=== PATIENT | female | born 2000 | race Caucasian/White ===

== ENCOUNTER 2021-01-21 13:41 | Emergency (ER) | payer SELFPAY ==
[2021-01-21 14:37] LABS: ACETAMINOPHEN < 2 ug/mL (<2)
--- NOTE | 2021-01-21 15:55 | EDM.PDOCBH ---
ED HPI GENERAL MEDICAL PROBLEM - General Stated Complaint: LACERATION Time Seen by Provider: 01/21/21 13:50 Source of Information: Reports: Patient, Family History Limitations: Reports: No Limitations - History of Present Illness INITIAL COMMENTS - FREE TEXT/NARRATIVE: c/o cutting arm pt went in bathroom and cut herself on her L forearm with a hunting knife, her boyfriend was in the other room and brought her to the hospital pt from [place], "left home" 9m ago and moved in with her boyfriend locally who is a college student and graduating in 2w and going back to work with his father pt in conflict with her parents and with no communication for 9m until sporadic communication 2w a go pt not sure what she is going to do or where she is going to live no self harm in the past, no counselor in past, on no meds had worked at [employer] states she is not in conflict with boyfriend father remarried, father and step mother in parking lot and came in to see pt stepmother says pt has not been answering her texts, said that pt could not "come home" unless she "made up" with her sibs stepmother said there was some conflict 1y ago but no one including the pt is saying what it was pt sleeping and eating poorly pt with very poor self esteem, apologizes repeatly pt wants help, says it would be good to talk to somebody says "it is complicated" when asked whether she does not want to life, also says others would be better off if she was not around d/w Pre[facility] at [facility] will try to arrange placement at [facility], pt is willing to go left forearm Pain Score (Numeric/FACES): 2 - Related Data Allergies Allergy/AdvReac Type Severity Reaction Status Date / Time No Known Allergies Allergy Verified 01/21/21 15:34 Home Meds: Home Meds NK [No Known Home Meds] 01/21/21 [History] ED ROS GENERAL - Review of Systems Review Of Systems: See Below Constitutional: Reports: No Symptoms HEENT: Reports: No Symptoms Respiratory: Reports: No Symptoms Cardiovascular: Reports: No Symptoms Endocrine: Reports: No Symptoms GI/Abdominal: Reports: No Symptoms : Reports: No Symptoms Musculoskeletal: Reports: No Symptoms Skin: Reports: Wound Neurological: Reports: No Symptoms Psychiatric: Reports: Depression, Suicidal Ideation Hematologic/Lymphatic: Reports: No Symptoms Immunologic: Reports: No Symptoms ED EXAM, BEHAVIORAL HEALTH - Physical Exam Exam: See Below Exam Limited By: No Limitations General Appearance: Alert, WD/WN, Mild Distress Ears: Normal External Exam Nose: Normal Inspection Throat/Mouth: Normal Inspection Head: Atraumatic Neck: Normal Inspection, Supple Respiratory/Chest: No Respiratory Distress, Lungs Clear Cardiovascular: Regular Rate, Rhythm, No Murmur GI/Abdominal: Soft, Non-Tender Back Exam: Normal Inspection Neurological: Alert, CN II-XII Intact, No Motor/Sensory Deficits Psychiatric: Alert Skin Exam: Warm, Dry, Other (L forarm with multiple parallel cuts, one deeper cut with 3 cm lac of 1 cm gap, 1% lido with epi with #30 needle local, cleaned x 12 with gauze and NS, closed with 3-0 Prolene x 6, tolerated well) COURSE, BEHAVIORAL HEALTH COMP - Course Vital Signs: Last Vital Signs Temp 36.8 C 01/21/21 23:10 Pulse 94 01/21/21 23:10 Resp 18 01/21/21 23:10 BP 127/74 01/21/21 23:10 Pulse Ox 100 01/21/21 23:10 Orders, Labs, Meds: Laboratory Tests 01/21/21 01/21/21 01/21/21 Range/Units 14:10 14:10 14:10 WBC 8.3 (3.0-10.3) x10-3/uL RBC 4.60 (3.60-5.20) x10(6)uL Hgb 13.6 (11.4-15.5) g/dL Hct 40.8 (34.2-48.2) % MCV 88.5 (76.7-100.5) fL MCH 29.5 (23.9-33.9) pg MCHC 33.3 (31.9-34.8) g/dL RDW 14.1 (12.3-16.5) % Plt Count 328 (151-488) x10(3)uL MPV 8.1 (7.1-12.4) fL Neut % (Auto) 74.2 (30.8-76.2) % Lymph % (Auto) 17.3 L (18.4-52.1) % [place] % (Auto) 7.4 (4.4-15.7) % Eos % (Auto) 0.5 L (0.6-8.1) % Baso % (Auto) 0.6 (0.2-1.5) % Neut # (Auto) 6.2 (1.5-6.3) x10-3/uL Lymph # (Auto) 1.4 (1.0-4.4) x10-3/uL Thurston # (Auto) 0.6 (0.3-1.0) x10-3/uL Eos # (Auto) 0.0 (0.0-0.8) x10-3/uL Baso # (Auto) 0.1 (0.0-0.1) x10-3/uL Sodium 138 (135-145) mmol/L Potassium 3.5 (3.5-5.3) mmol/L Chloride 99 L (100-110) mmol/L Carbon Dioxide 24 (21-32) mmol/L BUN 8 (7-18) mg/dL Creatinine 1.0 (0.55-1.02) mg/dL Est Cr Clr Drug Dosing TNP Estimated GFR (MDRD) > 60 (>60) BUN/Creatinine Ratio 8.0 L (9-20) Glucose 128 H (80-116) mg/dL Calcium 8.7 (8.6-10.2) mg/dL Total Bilirubin 0.5 (0.1-1.3) mg/dL AST 16 (5-25) IU/L ALT 19 (12-36) U/L Alkaline Phosphatase 71 (56-112) IU/L Total Protein 8.6 H (6.0-8.0) g/dL Albumin 4.8 (3.5-5.2) g/dL Globulin 3.8 g/dL Albumin/Globulin Ratio 1.3 TSH, Ultra Sensitive 1.69 (0.36-3.74) IU/mL Urine Color (YELLOW) Urine Appearance (CLEAR) Urine pH (5.0-6.5) Ur Specific [place] (1.010-1.025) Urine Protein (NEGATIVE) mg/dL Urine Glucose (UA) (NORMAL) mg/dL Urine Ketones (NEGATIVE) mg/dL Urine Occult Blood (NEGATIVE) Urine Nitrite (NEGATIVE) Urine Bilirubin (NEGATIVE) Urine Urobilinogen (NEGATIVE) mg/dL Ur Leukocyte Esterase (NEGATIVE) Urine RBC (0-5) Urine WBC (0-5) Ur Epithelial Cells Urine Bacteria (NS) Urine HCG, Qual (NEGATIVE) Salicylates 0.4 L (<2.8) mg/dL Urine Opiates Screen (NEGATIVE) Ur Oxycodone Screen (NEGATIVE) Ur Propoxyphene Screen (NEGATIVE) Acetaminophen < 2 L (<2) ug/mL Ur Barbituates Screen (NEGATIVE) Ur Tricyclics Screen (NEGATIVE) Ur Phencyclidine Scrn (NEGATIVE) Ur Amphetamine Screen (NEGATIVE) Urine MDMA Screen (NEGATIVE) U Benzodiazepines Scrn (NEGATIVE) U Cocaine Metab Screen (NEGATIVE) U Marijuana (THC) Screen (NEGATIVE) Ethyl Alcohol < 0.03 (<0.03) % SARS-CoV-2 RNA (ONI) (NEGATIVE) 01/21/21 01/21/21 01/21/21 Range/Units 16:45 16:45 16:45 WBC (3.0-10.3) x10-3/uL RBC (3.60-5.20) x10(6)uL Hgb (11.4-15.5) g/dL Hct (34.2-48.2) % MCV (76.7-100.5) fL MCH (23.9-33.9) pg MCHC (31.9-34.8) g/dL RDW (12.3-16.5) % Plt Count (151-488) x10(3)uL MPV (7.1-12.4) fL Neut % (Auto) (30.8-76.2) % Lymph % (Auto) (18.4-52.1) % Thurston % (Auto) (4.4-15.7) % Eos % (Auto) (0.6-8.1) % Baso % (Auto) (0.2-1.5) % Neut # (Auto) (1.5-6.3) x10-3/uL Lymph # (Auto) (1.0-4.4) x10-3/uL Thur[place] # (Auto) (0.3-1.0) x10-3/uL Eos # (Auto) (0.0-0.8) x10-3/uL Baso # (Auto) (0.0-0.1) x10-3/uL Sodium (135-145) mmol/L Potassium (3.5-5.3) mmol/L Chloride (100-110) mmol/L Carbon Dioxide (21-32) mmol/L BUN (7-18) mg/dL Creatinine (0.55-1.02) mg/dL Est Cr Clr Drug Dosing Estimated GFR (MDRD) (>60) BUN/Creatinine Ratio (9-20) Glucose (80-116) mg/dL Calcium (8.6-10.2) mg/dL Total Bilirubin (0.1-1.3) mg/dL AST (5-25) IU/L ALT (12-36) U/L Alkaline Phosphatase (56-112) IU/L Total Protein (6.0-8.0) g/dL Albumin (3.5-5.2) g/dL Globulin g/dL Albumin/Globulin Ratio TSH, Ultra Sensitive (0.36-3.74) IU/mL Urine Color Yellow (YELLOW) Urine Appearance Clear (CLEAR) Urine pH 5.0 (5.0-6.5) Ur Specific [place] 1.010 (1.010-1.025) Urine Protein Negative (NEGATIVE) mg/dL Urine Glucose (UA) Normal (NORMAL) mg/dL Urine Ketones Negative (NEGATIVE) mg/dL Urine Occult Blood Negative (NEGATIVE) Urine Nitrite Negative (NEGATIVE) Urine Bilirubin Negative (NEGATIVE) Urine Urobilinogen Normal (NEGATIVE) mg/dL Ur Leukocyte Esterase Negative (NEGATIVE) Urine RBC 0-5 (0-5) Urine WBC 0-5 (0-5) Ur Epithelial Cells Few Urine Bacteria Few H (NS) Urine HCG, Qual Negative (NEGATIVE) Salicylates (<2.8) mg/dL Urine Opiates Screen Negative (NEGATIVE) Ur Oxycodone Screen Negative (NEGATIVE) Ur Propoxyphene Screen Negative (NEGATIVE) Acetaminophen (<2) ug/mL Ur Barbituates Screen Negative (NEGATIVE) Ur Tricyclics Screen Negative (NEGATIVE) Ur Phencyclidine Scrn Negative (NEGATIVE) Ur Amphetamine Screen Negative (NEGATIVE) Urine MDMA Screen Negative (NEGATIVE) U Benzodiazepines Scrn Negative (NEGATIVE) U Cocaine Metab Screen Negative (NEGATIVE) U Marijuana (THC) Screen Negative (NEGATIVE) Ethyl Alcohol (<0.03) % SARS-CoV-2 RNA (ONI) (NEGATIVE) 05/06/21 Range/Units 19:56 WBC (3.0-10.3) x10-3/uL RBC (3.60-5.20) x10(6)uL Hgb (11.4-15.5) g/dL Hct (34.2-48.2) % MCV (76.7-100.5) fL MCH (23.9-33.9) pg MCHC (31.9-34.8) g/dL RDW (12.3-16.5) % Plt Count (151-488) x10(3)uL MPV (7.1-12.4) fL Neut % (Auto) (30.8-76.2) % Lymph % (Auto) (18.4-52.1) % [place] % (Auto) (4.4-15.7) % Eos % (Auto) (0.6-8.1) % Baso % (Auto) (0.2-1.5) % Neut # (Auto) (1.5-6.3) x10-3/uL Lymph # (Auto) (1.0-4.4) x10-3/uL [place] # (Auto) (0.3-1.0) x10-3/uL Eos # (Auto) (0.0-0.8) x10-3/uL Baso # (Auto) (0.0-0.1) x10-3/uL Sodium (135-145) mmol/L Potassium (3.5-5.3) mmol/L Chloride (100-110) mmol/L Carbon Dioxide (21-32) mmol/L BUN (7-18) mg/dL Creatinine (0.55-1.02) mg/dL Est Cr Clr Drug Dosing Estimated GFR (MDRD) (>60) BUN/Creatinine Ratio (9-20) Glucose (80-116) mg/dL Calcium (8.6-10.2) mg/dL Total Bilirubin (0.1-1.3) mg/dL AST (5-25) IU/L ALT (12-36) U/L Alkaline Phosphatase (56-112) IU/L Total Protein (6.0-8.0) g/dL Albumin (3.5-5.2) g/dL Globulin g/dL Albumin/Globulin Ratio TSH, Ultra Sensitive (0.36-3.74) IU/mL Urine Color (YELLOW) Urine Appearance (CLEAR) Urine pH (5.0-6.5) Ur Specific [place] (1.010-1.025) Urine Protein (NEGATIVE) mg/dL Urine Glucose (UA) (NORMAL) mg/dL Urine Ketones (NEGATIVE) mg/dL Urine Occult Blood (NEGATIVE) Urine Nitrite (NEGATIVE) Urine Bilirubin (NEGATIVE) Urine Urobilinogen (NEGATIVE) mg/dL Ur Leukocyte Esterase (NEGATIVE) Urine RBC (0-5) Urine WBC (0-5) Ur Epithelial Cells Urine Bacteria (NS) Urine HCG, Qual (NEGATIVE) Salicylates (<2.8) mg/dL Urine Opiates Screen (NEGATIVE) Ur Oxycodone Screen (NEGATIVE) Ur Propoxyphene Screen (NEGATIVE) Acetaminophen (<2) ug/mL Ur Barbituates Screen (NEGATIVE) Ur Tricyclics Screen (NEGATIVE) Ur Phencyclidine Scrn (NEGATIVE) Ur Amphetamine Screen (NEGATIVE) Urine MDMA Screen (NEGATIVE) U Benzodiazepines Scrn (NEGATIVE) U Cocaine Metab Screen (NEGATIVE) U Marijuana (THC) Screen (NEGATIVE) Ethyl Alcohol (<0.03) % SARS-CoV-2 RNA (ONI) Negative (NEGATIVE) Medications Discontinued Medications Generic Name Dose Route Start Last Admin Trade Name Miles PRN Reason Stop Dose Admin Ibuprofen 800 mg 01/21/21 20:05 01/21/21 20:13 Ibuprofen 800 Mg Tab PO 01/21/21 20:06 800 mg ONETIME ONE Administration Re-Assessment/Re-Exam: 11p father spoke with me, stating that pt needed to do what he told her to do, that "life was not a free ride," that she needed to work if she came and lived in his household, that she would come and live in his household because he was going to take control of her life, that she was going to do what he said, that she would not go out in the evening with friends unless he gave permission for her to do so A safe d/c from an inpatient unit may be problematic given family dynamics, conflict at home, and pt's difficulty in establishing an independent life and independent identity father reports that his sister committed suicide when he was 16 yo biological mother in 2010 from complications of alcohol, "drank herself to " step-mother reported earlier that pt said she had taken an OD of acetaminophen 2d ago and had drunk a bottle of cough syrup earlier today 7a on 01-22-21 accepted by [facility], documentation faxed to them at 5p yesterday Departure - Departure Time of Disposition: 07:09 Disposition: DC/Tfer to Psych Hosp/Unit [facility] Condition: Undetermined Clinical Impression: Suicidal ideation, Laceration of left forearm, Deliberate self-cutting, Conflict between patient and family, Dysthymic disorder - Discharge Information *PRESCRIPTION DRUG MONITORING PROGRAM REVIEWED*: Not Applicable *COPY OF PRESCRIPTION DRUG MONITORING REPORT IN PATIENT BLADIMIR: Not Applicable Referrals: PCP,None [Primary Care Provider] - Sepsis Event Note (ED) - Focused Exam Vital Signs: Vital Signs Temp Pulse Resp BP Pulse Ox 01/21/21 23:10 36.8 C 94 18 127/74 100 01/21/21 19:55 93 18 122/76 99
[2021-01-21] MEDS ORDERED: Ibuprofen 800 MG Tab PO ONE (20:05)
== END 2021-01-22 07:23 ==
LOC: FB.ED 13:41
DX: S51.812A Laceration without foreign body of left forearm, initial encounter (principal); F34.1 Dysthymic disorder; Z20.822 Contact with and (suspected) exposure to COVID-19; X78.1XXA Intentional self-harm by knife, initial encounter; Y92.009 Unspecified place in unspecified non-institutional (private) residence as the place of occurrence of the external cause
CPT/HCPCS: 12002; 36415; 80053; 80143; 80179; 80305; 80307; 81001; 81025; 84443; 85025; 87635; 99285; A9270; U0002